=== PATIENT | male | born 1955 | race Caucasian/White ===

== ENCOUNTER 2016-07-22 16:13 | Emergency (ER) | payer MEDICARE ==
[2016-07-22 17:16] LABS: BASO % 0.4 % (0.2-1.2); EOS # 0.2 10_X3_uL (0.0-0.5); EOS % 3.8 % (0.8-7.0); GRAN # 3.2 10_X3_uL (1.8-5.4); GRAN % 67.7 % (34.0-67.9); HEMATOCRIT 39.6 % (40-51); HEMOGLOBIN 14.2 g/dL (13.7-17.5); LYMPH # 0.9 10_X3_uL (1.3-3.6); MEAN CORPUSCULAR HEMOGLOBIN 32.2 pg (27.0-33.0); MEAN CORPUSCULAR HGB CONC 35.9 g/dL (32.0-36.0); MEAN CORPUSCULAR VOLUME 89.8 fL (79-92); MEAN PLATELET VOLUME 8.9 fl (7.5-11.5); MONO # 0.4 10_X3_uL (0.3-0.8); MONO % 8.1 % (5.3-12.2); PLATELET COUNT 112 x10_3/uL (163-337); RED BLOOD COUNT 4.41 x10_6/uL (4.6-6.1); RED CELL DISTRIBUTION WIDTH 14.8 % (11.6-14.4); WHITE BLOOD COUNT 4.7 x10_3/uL (4.2-9.1)
[2016-07-22 17:29] LABS: CREATININE 1.6 mg/dL (0.6-1.3); POTASSIUM 4.2 mmol/L (3.5-5.1)
[2016-07-22 17:30] LABS: CALCIUM 9.5 mg/dL (8.7-10.7)
== END 2016-07-22 21:23 | disposition home or self-care (01) ==
LOC: ER 16:13
PROVIDERS: Emergency Medicine
DX: R51 Headache (principal); I95.9 Hypotension, unspecified; E86.0 Dehydration; F41.9 Anxiety disorder, unspecified; I10 Essential (primary) hypertension; F32.9 Major depressive disorder, single episode, unspecified; Z79.899 Other long term (current) drug therapy
CPT/HCPCS: 36415; 70450; 80048; 85025; 96361; 96374; 96375; 96376; 99283-25

== ENCOUNTER 2016-08-19 01:54 | Emergency (ER) | payer MEDICARE ==
[2016-08-19 02:41] LABS: BASO % 0.4 % (0.2-1.2); EOS # 0.3 10_X3_uL (0.0-0.5); EOS % 6.4 % (0.8-7.0); GRAN # 2.7 10_X3_uL (1.8-5.4); GRAN % 57.4 % (34.0-67.9); HEMATOCRIT 39.9 % (40-51); HEMOGLOBIN 14.2 g/dL (13.7-17.5); LYMPH # 1.2 10_X3_uL (1.3-3.6); LYMPH % 25.5 % (21.8-53.1); MEAN CORPUSCULAR HEMOGLOBIN 32.1 pg (27.0-33.0); MEAN CORPUSCULAR HGB CONC 35.6 g/dL (32.0-36.0); MEAN CORPUSCULAR VOLUME 90.3 fL (79-92); MEAN PLATELET VOLUME 9.8 fl (7.5-11.5); MONO # 0.5 10_X3_uL (0.3-0.8); MONO % 10.3 % (5.3-12.2); PLATELET COUNT 125 x10_3/uL (163-337); RED BLOOD COUNT 4.42 x10_6/uL (4.6-6.1); RED CELL DISTRIBUTION WIDTH 13.8 % (11.6-14.4); WHITE BLOOD COUNT 4.7 x10_3/uL (4.2-9.1)
[2016-08-19 02:52] LABS: ALBUMIN 4.5 gm/dL (3.4-5.0); BILIRUBIN,TOTAL 1.41 mg/dL (0.0-1.0); CALCIUM 10.4 mg/dL (8.7-10.7); CREATININE 2.2 mg/dL (0.6-1.3); POTASSIUM 4.6 mmol/L (3.5-5.1); TOTAL PROTEIN 7.7 gm/dL (6.4-8.2)
== END 2016-08-19 03:41 | disposition home or self-care (01) ==
LOC: ER 01:54
PROVIDERS: General Practice
DX: F41.9 Anxiety disorder, unspecified (principal); I12.9 Hypertensive chronic kidney disease with stage 1 through stage 4 chronic kidney disease, or unspecified chronic kidney disease; N18.9 Chronic kidney disease, unspecified; M10.9 Gout, unspecified; M54.9 Dorsalgia, unspecified; G89.29 Other chronic pain; Z79.899 Other long term (current) drug therapy
CPT/HCPCS: 36415; 80053; 80307; 84443; 85025; 99283